=== PATIENT | female | born 1965 | race Caucasian/White ===

== ENCOUNTER 2017-08-14 20:26 | Emergency (ER) | payer BC, MEDICARE ==
[~2017-08-14] VITALS: Ht 165.1 cm; Wt 104.3 kg
[~2017-08-14 20:26] MED LIST: BIOT800T PO; CALC600T4 PO; CETI10TA30 PO; CHOL500045 PO; CYAN500L2 PO; FENT1PAT15 TD; FLUO20CA16 PO; FOLI1TAB16 PO; FURO40TA4 PO; HYDR20TA3 PO; NIFE30TA7 PO; OXYB15TA PO; OXYC5TAB95 PO; PANT40TA5 PO; POLY17PO3 PO; POTA20TA84 PO; PREG150C PO; SENN8.6C2 PO; SULF500T7 PO; TIZA4CAP PO; [UNRECOGNIZED DRUG - CODE] SQ
[2017-08-14] MEDS ORDERED: HYDROcodone/APAP 5/325MG 1 TAB TABLET PO ONE (21:15)
[2017-08-14 21:40] VITALS: BP 122/82
--- NOTE | 2017-08-14 21:40 | PHYS DOC ---
Past History Past Medical History: Other Past Surgical History: Other Smoking: Non-smoker Alcohol Use: None Drug Use: None Adult General Chief Complaint Chief Complaint: WRIST PAIN HPI HPI Patient is a 52 year old female who presents with right wrist injury. The patient states today she fell backward onto outstretched right hand after pulling on a strap attached to new furniture which broke while she was pulling. She denies head injury or loss of consciousness, no other injuries. She has history of previous wrist fracture. 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 She is right handed. Review of Systems Review of Systems Constitutional: Denies fever or chills HENT: Denies nasal congestion or sore throat Respiratory: Denies cough or shortness of breath Cardiovascular: Denies chest pain GI: Denies abdominal pain, nausea, vomiting Musculoskeletal: Reports wrist pain Integument: Denies rash Neurologic: Denies headache All other systems were reviewed and found to be within normal limits, except as documented in this note. Current Medications Current Medications Current Medications Medications (Trade) Dose Ordered Sig/Arlet Start Time Stop Time Status Last Admin Dose Admin Acetaminophen/ Hydrocodone Bitart (Lortab 5/325) 1 tab 1X ONCE 08/14/17 21:15 08/14/17 21:16 DC 08/14/17 21:15 1 TAB Allergies Allergies Allergies Coded Allergies Type Severity Reaction Last Updated Verified chlorzoxazone Allergy Unknown 09/08/13 Yes mannitol Allergy Unknown 09/08/13 Yes morphine Allergy Unknown 09/08/13 Yes zoledronic acid Allergy Unknown 09/08/13 Yes Physical Exam Physical Exam Constitutional: obese, no acute distress, non-toxic appearance. HENT: Normocephalic, atraumatic, bilateral external ears normal, oropharynx moist, nose normal. Eyes: conjunctiva normal, no discharge. Cardiovascular: no edema. Lungs & Thorax: no respiratory distress. Abdomen: nondistended. Skin: Warm, dry, no erythema, no rash. Extremities: right wrist mild swelling without deformity, tenderness over distal radius no snuffbox tenderness, limited ROM secondary to pain, no elbow or shoulder tenderness, radial pulse 2+, radial/median/ulnar nerve sensory & motor function intact. Neurologic: Alert and oriented X 3, no focal deficits noted. Psychologic: Affect normal, judgement normal, mood normal. EKG EKG [] Radiology/Procedures Radiology/Procedures XR right wrist: interpreted by me: no fracture or dislocation, no acute process.[] Course & Med Decision Making Course & Med Decision Making Pertinent Labs and Imaging studies reviewed. (See chart for details) The patient presents with wrist injury. No sign of other injury. Gave pain medication. X-ray negative for acute fracture. Recommend rest, ice, elevation , removable splint for comfort. Take tylenol for pain. Follow up with primary care if not improving in 2-3 days. Come back for signs of compartment syndrome or otherwise worsening condition. Discharged home in stable condition. [] Dragon Disclaimer Dragon Disclaimer This electronic medical record was generated, in whole or in part, using a voice recognition dictation system. Departure Departure: Impression: Primary Impression: Wrist sprain Disposition: 01 HOME, SELF-CARE Condition: STABLE Referrals: ROLANDO CARDONA MD (PCP) Patient Instructions: Wrist Sprain with [facility]hab[facility] Additional Instructions: You were seen in the emergency department today for wrist injury. X-ray did not show fracture. please rest, ice, elevate, take tylenol for pain, wear removable splint for comfort. Follow up with primary care if not improving in 1 week. Come back for numbness or weakness, extreme swelling, cold fingers, any otherwise worsening condition. ANDREWS APONTE MD Aug 14, 2017 21:40
--- NOTE | 2017-08-15 09:37 | RAD ---
Right wrist, 3 views, 08/14/2017: History: Wrist injury No acute fracture or dislocation is identified. There is mild soft tissue swelling about the wrist. There is a hazy groundglass type opacity in the distal radial shaft with absence of the normal trabecular pattern. No bone destruction or periosteal reaction is seen. No osteoid or chondroid matrix is seen within this process. This has a relatively benign appearance and may represent fibrous dysplasia. IMPRESSION: 1. Demineralization. 2. No acute bony abnormalities detected. 3. Distal radial lesion raising the possibility of fibrous dysplasia. A radionuclide bone scan is suggested in excluding a more aggressive, neoplastic process. Depending on those results, MR scanning may also be helpful. Note: The findings were called to personnel in the [facility] ER at 9:34 AM on 08/15/2017.
== END 2017-08-14 21:49 | disposition home or self-care (01) ==
LOC: ER 20:26
DX: M25.531 Pain in right wrist (principal); S63.501A Unspecified sprain of right wrist, initial encounter; Z88.8 Allergy status to other drugs, medicaments and biological substances; Z88.5 Allergy status to narcotic agent; W19.XXXA Unspecified fall, initial encounter; Y93.89 Activity, other specified; Y99.8 Other external cause status; Y92.89 Other specified places as the place of occurrence of the external cause
CPT/HCPCS: 29125; 73110; 99284